=== PATIENT | female | born 1985 | race Two or more races ===

== ENCOUNTER 2019-04-19 22:30 | Inpatient (IN) | payer OTHER ==
[2019-04-19] MEDS ORDERED: PROMETHAZINE HCL 25 MG/1 ML VIAL IVPB ONE (23:30)
[2019-04-19] MEDS ORDERED: ELECTROLYTE-148 SOLN 1,000 ML IV SCH (23:30)
[2019-04-19] MEDS ORDERED: BUTORPHANOL TARTRATE 2 MG/ML VIAL IVPB ONE (23:30)
[2019-04-19] MEDS ORDERED: PROMETHAZINE HCL 25 MG/1 ML VIAL ONE (23:34)
[2019-04-19] MEDS ORDERED: BUTORPHANOL TARTRATE 2 MG/ML VIAL ONE (23:34)
[2019-04-19 23:57] VITALS: BMI 32.2
[2019-04-20 00:05] LABS: BASO % 0.3 % (0-2.0); EOS % 0.5 % (0-4.5); HEMATOCRIT 38.2 % (32.4-45.2); HEMOGLOBIN 12.9 GM/dL (10.7-15.3); MCH 27.8 pg (25.7-33.7); MCHC 33.6 g/dl (32.0-36.0); MEAN CELL VOLUME 82.7 fl (80-96); MEAN PLT VOLUME 7.9 fl (7.5-11.1); MONO % 7.2 % (3.8-10.2); PLATELET COUNT 232 K/MM3 (134-434); RBC 4.62 M/mm3 (3.60-5.2); RDW 15.3 % (11.6-15.6); WHITE BLOOD COUNT 10.5 K/mm3 (4.0-10.0)
[2019-04-20 00:31] LABS: BLOOD UREA NITROGEN 11.6 mg/dL (7-18); CALCIUM 8.7 mg/dL (8.5-10.1); CREATININE 0.7 mg/dL (0.55-1.3); POTASSIUM 3.8 mmol/L (3.5-5.1)
[2019-04-20 00:40] LABS: INR 0.87 (0.83-1.09); PROTHROMBIN TIME (PATIENT) 10.3 SEC (9.7-13.0)
[2019-04-20] MEDS ORDERED: FENTANYL/BUPIVACAINE/NS/PF - PCEA - 50 ML DISP.SYRIN EP ONE ×2 (04:54→08:33)
[2019-04-20] MEDS ORDERED: NALOXONE HCL 0.4 MG/ML VIAL IVPUSH PRN (05:00)
[2019-04-20] MEDS ORDERED: FENTANYL/BUPIVACAINE/NS/PF - PCEA - 50 ML DISP.SYRIN EP SCH (05:00)
[2019-04-20] MEDS ORDERED: LIDO 2%/EPI 1:200000 PRESRVFRE (20 ML SDVIAL) ONE (05:02)
[2019-04-20] MEDS ORDERED: BUPIVACAINE HCL/PF 0.25% (2.5MG/ML) 10 ML VIAL ONE ×2 (05:02→05:55)
[2019-04-20] MEDS ORDERED: OXYTOCIN 30 UNITS in 0.9% NS 30 UNIT/500 ML INFUS.BAG IVPB ONE (05:36)
[2019-04-20] MEDS ORDERED: OXYTOCIN 30 UNITS in 0.9% NS 30 UNIT/500 ML INFUS.BAG IVPB SCH (05:45)
--- NOTE | 2019-04-20 05:47 | HP ---
Past Medical History - Admission Chief Complaint: active labor History of Present Illness: none History Source: Patient Limitations to Obtaining History: No Limitations - Past Medical History MISSILE TECHNICIAN: No: Alzheimer's, CVA, Dementia, Migraine, Multiple Sclerosis, Peripheral Neuropathy, Parkinson's, Seizure, Syncope, TIA, Vertigo, Other Cardiovascular: No: AFIB, Aneurysm, Aortic Insufficiency, Aortic Stenosis, CAD, CHF, Deep Vein Thrombosis, HTN, Hyperlipdemia, SD, Mitral Insufficiency, Mitral Stenosis, Murmur, Pulmonary Hypertension, Other Pulmonary: No: Asthma, Bronchitis, Cancer, COPD, O2 Dependent, Pneumonia, Previously Intubated, Pulmonary Embolus, Pulmonary Fibrosis, Sleep Apnea, Other Gastrointestinal: No: Ascites, Cancer, Constipation, Crohn's Disease, Diverticulitis, Diverticulosis, Esophageal Varices, Gastritis, GERD, GI Bleed, Hemorrhoids, Hiatal Hernia, Inflamatory Bowel Disease, Irritable Bowel Disease, Pancreatitis, Peptic Ulcer Disease, Ulcerative Colitis, Other Hepatobiliary: No: Cirrhosis, Cholelithiasis, Cholecystitis, Choledocholithiasis , Hepatitis A, Hepatitis B, Hepatitis C, Other Renal/: No: Renal Failure, Renal Inusuff, BPH, Cancer, Hematuria, Hemodialysis , Neurogenic Bladder, Renal Calculi, UTI, Other Reproductive: No: Ectopic , Endometriosis, Fibroids, PID, Polycystic Ovary Syndrome, Postmenopausal, Other ...: 2 ...Para: 0 ...Term: 0 ...: 0 ...Spon : 1 ...Induced : 0 ...Multiple Gestation: 0 ...EDC by Uri: 04/16/19 Heme/Onc: No: Anemia, B12 Deficiency, Bleeding Disorder, Cancer, Current Chemotherapy, Current Radiation Therapy, Hemochromatosis, Hypercoaguable State, Myeloproliferative Synd, Sickle Cell Disease, Sickle Cell Trait, Thrombocytopenia, Other Infectious Disease: No: AIDS, C-Diff, Herpes Zoster, HIV, MRSA, STD's, Tuberculosis, VREF, Other Psych: No: Addictions, Anxiety, Bipolar, Depression, Panic, Psychosis, Schizophrenia, Other Musculoskeletal: No: Bursitis, Chronic low back pain, Hemiparesis, Hemiplegia, Osteoarthritis, Paraplegia, Other Rheumatology: No: Fibromyalgia, Gout, Lupus, Rheumatoid Arthritis, Sarcoidosis, Vasculitis, Other ENT: No: Allergic Rhinitis, Sinusitis, Other Endocrine: No: Deerfield's Disease, Jeremy's Disease, Diabetes Insipidus, Diabetes Mellitus, Hyperparathyroidism, Hyperthyroidism, Hypothyroidism, Osteopenia, SIADH, Other Dermatology: No: Basal Cell, Cellulitis, Eczema, Melanoma, Psoriasis, Squamous Cell, Other - Past Surgical History Past Surgical History: No: None, AAA Repair, AICD, Amputation, Appendectomy, Arthrosocopy, AV Fistula/Graft, Bariatric Surgery, Breast Biopsy, Bypass, CABG, Carotid Endarterectomy, Cataract Removal, Cholecystectomy, Colectomy, Colonoscopy, Colostomy, Craniotomy, , Cystectomy, Hernia Repair, Hysterectomy, Ileal Conduit, Ileosotomy, Joint Replacement, Kidney Transplant, Laminectomy, Liver Transplant, Mastectomy, Nephrectomy, Oopherectomy, Orchiectomy, Permanent Pacemaker, Prostatectomy, Splenectomy, Stent, Thoracotomy , TURP, Tonsillectomy, Tubal Ligation, Upper Endoscopy, Valve Replacement, Vasectomy, Vein Stripping/Ligation Hx Myomectomy: No Hx Transabdominal Cerclage: No - Advance Directives Advance Directives: Yes: Living Will - Smoking History Smoking history: Never smoked Have you smoked in the past 12 months: No - Alcohol/Substance Use Hx Alcohol Use: No History of Substance Use: reports: None - Social History Usual Living Arrangement: Yes: With Spouse ADL: Independent History of Recent Travel: No Home Medications - Allergies Allergies/Adverse Reactions: Allergies Allergy/AdvReac Type Severity Reaction Status Date / Time shrimp Allergy Unknown Verified 04/19/19 23:20 Family Disease History - Family Disease History Family History: Denies Review of Systems - Review of Systems Constitutional: reports: No Symptoms Eyes: reports: No Symptoms HENT: reports: No Symptoms Neck: reports: No Symptoms Cardiovascular: reports: No Symptoms Respiratory: reports: No Symptoms Gastrointestinal: reports: No Symptoms Genitourinary: reports: No Symptoms Breasts: reports: No Symptoms Reported Musculoskeletal: reports: No Symptoms Integumentary: reports: No Symptoms Neurological: reports: No Symptoms Endocrine: reports: No Symptoms Hematology/Lymphatic: reports: No Symptoms Psychiatric: reports: No Symptoms Physical Exam - Maternity Vital Signs: Vital Signs Temperature 98.4 F 04/20/19 04:00 Pulse Rate 86 04/20/19 05:00 Respiratory Rate 20 04/20/19 05:00 Blood Pressure 124/81 04/20/19 05:00 O2 Sat by Pulse Oximetry (%) Constitutional: Yes: Well Nourished, No Distress, Calm Eyes: Yes: WNL, Conjunctiva Clear, EOM Intact HENT: Yes: WNL, Atraumatic, Normocephalic Neck: Yes: WNL, Supple, Trachea Midline Cardiovascular: Yes: WNL, Regular Rate and Rhythm Lungs: Clear to auscultation Breast(s): Yes: WNL - Abdominal Exam/OB Number of Fetuses: Single Presentation: Vertex Contractions: Yes Regularity: Irregular Intensity: Mild/Mod Monitor Mode: External Heart Rate Location: [facility] Category: I Accelerations: Uniform Decelerations: None - Vaginal Exam/OB Vaginal Bleediing: Light, Bloody Show Speculum Exam: No Amniotic Membrane Status: Intact Presentation: Vertex/Position Station: -2 - Physical Exam Musculoskeletal: Yes: WNL Extremities: Yes: WNL Edema: Yes Edema: LUE: 1+, RUE: 1+, LLE: 1+, RLE: 1+ Integumentary: Yes: WNL Deep Tendon Reflex Grade: Normal +2 ...Motor Strength: WNL Psychiatric: Yes: WNL, Alert, Oriented - Labs Lab Results: CBC, BMP 04/19/19 23:30 04/19/19 23:30 Assessment/Plan for spontaneous laboring , pain medications
[2019-04-20] MEDS ORDERED: OXYTOCIN 20 UNITS in 0.9% NS 20 UNIT/1,000 ML INFUS.BAG IV ONE (06:52)
--- NOTE | 2019-04-20 09:10 | PN ---
Progress Note (short form) - Note Progress Note: 530 am 6cm, -1, 80%, epidural in, but not working well, continue laboring
--- NOTE | 2019-04-20 09:18 | PN ---
Progress Note (short form) - Note Progress Note: 745 am , 9 cm , -1, 100%, pushing soon
[2019-04-20] MEDS ORDERED: IBUPROFEN 600 MG TABLET (FP) PO ONE (10:45)
[2019-04-20] MEDS ORDERED: WITCH HAZEL 50% (TUCKS) 40 PAD/JAR PAD TP PRN (11:02)
[2019-04-20] MEDS ORDERED: BENZOCAINE 28 GM HEMORRHOIDAL OINTMENT TP PRN (11:02)
[2019-04-20] MEDS ORDERED: BISACODYL 10 MG SUPP.RECT RC PRN (11:02)
[2019-04-20] MEDS ORDERED: oxyCODONE HCL 5 MG TABLET PO PRN (11:02)
[2019-04-20] MEDS ORDERED: METHYLERGONOVINE MALEATE 0.2 MG/1 ML AMP IM PRN (11:02)
[2019-04-20] MEDS ORDERED: BENZOCAINE 20% 57 GM BOTTLE TP PRN (11:02)
[2019-04-20] MEDS ORDERED: IBUPROFEN 600 MG TABLET (FP) PO PRN (11:02)
[2019-04-20] MEDS ORDERED: ACETAMINOPHEN 325 MG TABLET (FP) PO PRN (11:02)
--- NOTE | 2019-04-20 11:10 | PN ---
Delivery - Delivery Type of Anesthesia: Local, Epidural Episiotomy/Laceration: Right Mediolateral EBL (cc): 300 Delivery, Single - Stages of Labor Date 1st Stage Initiatied: 04/19/19 Time 1st Stage Initiated: 21:00 Date 2nd Stage Initiated: 04/20/19 Time 2nd Stage Initiated: 09:30 Date of Delivery: 04/20/19 Time of Delivery: 10:20 Date Placenta Delivered: 04/20/19 Time Placenta Delivered: 10:40 Placenta: Yes: Spontaneous - Condition of Scouring Pads Supervisor/Saw Superintendent Present: Yes Gender: Male Weight: 3.062 kg Position: Right, OA Total Hours ROM (Hrs/Mins): 7 hrs - 1 Minute Total Score: 9 5 Minutes Total Score: 9 - [place] Feeding Plan Initial Plan: Elected not to breastfeed exclusively throughout hospitalization Benefits of Exclusively reinforced: Yes
[2019-04-20] MEDS ORDERED: OXYTOCIN 20 UNITS in 0.9% NS 20 UNIT/1,000 ML INFUS.BAG IV SCH (11:15)
[2019-04-21 08:21] LABS: BASO % 0.2 % (0-2.0); EOS % 0.6 % (0-4.5); HEMATOCRIT 31.8 % (32.4-45.2); HEMOGLOBIN 10.4 GM/dL (10.7-15.3); LYMPH % 13.9 % (8-40); MCH 27.5 pg (25.7-33.7); MCHC 32.9 g/dl (32.0-36.0); MEAN CELL VOLUME 83.7 fl (80-96); MEAN PLT VOLUME 8.1 fl (7.5-11.1); NEUT % 80.3 % (42.8-82.8); PLATELET COUNT 195 K/MM3 (134-434); RDW 15.9 % (11.6-15.6); WHITE BLOOD COUNT 16.5 K/mm3 (4.0-10.0)
--- NOTE | 2019-04-21 17:03 | PN ---
Post Progress Note Post Day: 1 Type of Delivery: Vital Signs: Vital Signs Temperature 98.5 F 04/21/19 10:00 Pulse Rate 77 04/21/19 10:00 Respiratory Rate 20 04/21/19 10:00 Blood Pressure 94/56 L 04/21/19 10:00 O2 Sat by Pulse Oximetry (%) 98 04/20/19 09:30 Breast Exam: Yes: Soft Uterus: Yes: Fundus Firm, Fundus below umbilicus Abdomen/GI: Yes: Abdomen soft, Passing flatus, Tolerating PO Lochia: Yes: Serosa Lochia, amount: Small Extremities: Yes: Calves non-tender Perineum: Yes: Episiotomy Activity: Ambulating - Labs Labs: CBC WBC 16.5 K/mm3 (4.0-10.0) H 04/21/19 07:39 RBC 3.80 M/mm3 (3.60-5.2) 04/21/19 07:39 Hgb 10.4 GM/dL (10.7-15.3) L 04/21/19 07:39 Hct 31.8 % (32.4-45.2) L D 04/21/19 07:39 MCV 83.7 fl (80-96) 04/21/19 07:39 MCH 27.5 pg (25.7-33.7) 04/21/19 07:39 MCHC 32.9 g/dl (32.0-36.0) 04/21/19 07:39 RDW 15.9 % (11.6-15.6) H 04/21/19 07:39 Plt Count 195 K/MM3 (134-434) 04/21/19 07:39 MPV 8.1 fl (7.5-11.1) 04/21/19 07:39 Absolute Neuts (auto) 13.3 K/mm3 (1.5-8.0) H 04/21/19 07:39 Neutrophils % 80.3 % (42.8-82.8) 04/21/19 07:39 Lymphocytes % 13.9 % (8-40) 04/21/19 07:39 Monocytes % 5.0 % (3.8-10.2) 04/21/19 07:39 Eosinophils % 0.6 % (0-4.5) 04/21/19 07:39 Basophils % 0.2 % (0-2.0) 04/21/19 07:39 Nucleated RBC % 0 % (0-0) 04/21/19 07:39 Assessment/Plan dc pt home donna
--- NOTE | 2019-04-21 17:05 | DS ---
Physical Exam-WEB DEVELOPER PROGRAMMER Vital Signs: Vital Signs Temperature 98.5 F 04/21/19 10:00 Pulse Rate 77 04/21/19 10:00 Respiratory Rate 20 04/21/19 10:00 Blood Pressure 94/56 L 04/21/19 10:00 O2 Sat by Pulse Oximetry (%) 98 04/20/19 09:30 Constitutional: Yes: Well Nourished, No Distress, Calm Eyes: Yes: WNL, Conjunctiva Clear, EOM Intact HENT: Yes: WNL, Atraumatic, Normocephalic Neck: Yes: WNL, Supple, Trachea Midline Cardiovascular: Yes: WNL, Regular Rate and Rhythm Respiratory: Yes: WNL, Regular, CTA Bilaterally Gastrointestinal: Yes: WNL, Normal Bowel Sounds, Soft ...Rectal Exam: Yes: WNL Renal/: Yes: WNL Pelvis: Yes: WNL External Genitalia: Yes: Normal Internal Exam Deferred: No Vaginal Exam: Yes: Normal Cervix: Yes: Normal Uterus: Yes: Normal Adnexa: Normal: Bilateral ....Post : Yes: Uterus firm, Uterus non-tender Breast(s): Yes: WNL Musculoskeletal: Yes: WNL Extremities: Yes: WNL Edema: Yes Edema: LUE: 1+, RUE: 1+, LLE: 1+, RLE: 1+ Integumentary: Yes: WNL Wound/Incision: Yes: Clean/Dry, Well Approximated Neurological: Yes: WNL, Alert, Oriented ...Motor Strength: WNL Psychiatric: Yes: WNL, Alert, Oriented Labs: CBC, BMP 04/21/19 07:39 04/19/19 23:30 Delivery - Delivery Type of Anesthesia: Local, Epidural Episiotomy/Laceration: Right Mediolateral EBL (cc): 300 Delivery, Single - Stages of Labor Date 1st Stage Initiatied: 04/19/19 Time 1st Stage Initiated: 21:00 Date 2nd Stage Initiated: 04/20/19 Time 2nd Stage Initiated: 09:30 Date of Delivery: 04/20/19 Time of Delivery: 10:20 Time Placenta Delivered: 10:40 Placenta: Yes: Spontaneous - Condition of Infant Air Traffic Coordinator/Gasket Maker Present: Yes Name: Hollie Napoles Infant Gender: Male Weight: 3.062 kg Position: Right, OA Total Hours ROM (Hrs/Mins): 7 hrs - 1 Minute Total Score: 9 5 Minutes Total Score: 9 - [place] Feeding Plan Initial Plan: Elected not to breastfeed exclusively throughout hospitalization Benefits of Exclusively reinforced: Yes Discharge Summary Reason For Visit: LABOR ADMIT Condition: Stable - Instructions Diet, Activity, Other Instructions: regular Disposition: HOME - Home Medications Comprehensive Discharge Medication List: Ambulatory Orders Vitamins ([facility]) - 1 tab PO DAILY 04/20/19
[2019-04-21] MEDS ORDERED: SENNOSIDES/DOCUSATE COMBO (SENNA PLUS) TABLET (UD) PO PRN (22:00)
[2019-04-22 11:56] VITALS: BP 115/68; PULSE 88; TEMP 98
== END 2019-04-22 13:45 | disposition home or self-care (01) | DRG 807 ==
LOC: JDEL 22:30 → JLDR 22:53 → J3W 04-20 12:54
PROVIDERS: ADMIT Obstetrics & Gynecology; ATTEND Obstetrics & Gynecology
PROC: 10D07Z6 Extraction of Products of Conception, Vacuum, Via Natural or Artificial Opening (ICD-10-PCS; principal; 2019-04-20)
PROC: 0W8NXZZ Division of Female Perineum, External Approach (ICD-10-PCS; 2019-04-20)
PROC: 3E0R3BZ Introduction of Anesthetic Agent into Spinal Canal, Percutaneous Approach (ICD-10-PCS; 2019-04-20)
DX: O75.81 Maternal exhaustion complicating labor and delivery (principal); Z37.0 Single live birth; Z3A.39 39 weeks gestation of pregnancy
CPT/HCPCS: 36415; 59409; 80048; 85025; 85610; 85730; 86593; 86850; 86900; 86901; 87389

== ENCOUNTER 2020-11-27 04:45 | Inpatient (IN) | payer OTHER ==
[2020-11-27] MEDS ORDERED: ELECTROLYTE-148 SOLN 1,000 ML IV SCH (05:15)
[2020-11-27] MEDS ORDERED: OXYTOCIN 30 UNITS in 0.9% NS 30 UNIT/500 ML INFUS.BAG IVPB SCH (05:15)
[2020-11-27 05:36] VITALS: BMI 31.9
[2020-11-27 05:37] LABS: BASO % 0.5 % (0-2.0); EOS % 0.5 % (0-4.5); HEMATOCRIT 39.7 % (32.4-45.2); HEMOGLOBIN 13.3 GM/dL (10.7-15.3); LYMPH % 14.4 % (8-40); MCH 27.3 pg (25.7-33.7); MCHC 33.5 g/dl (32.0-36.0); MEAN CELL VOLUME 81.4 fl (80-96); MONO % 7.3 % (3.8-10.2); NEUT % 77.3 % (42.8-82.8); PLATELET COUNT 285 K/MM3 (134-434); RBC 4.87 M/mm3 (3.60-5.2); RDW 14.1 % (11.6-15.6); WHITE BLOOD COUNT 12.5 K/mm3 (4.0-10.0)
[2020-11-27 05:44] LABS: INR 0.89 (0.83-1.09); PROTHROMBIN TIME (PATIENT) 10.8 SEC (9.7-13.0)
[2020-11-27 05:57] LABS: POTASSIUM 3.9 mmol/L (3.5-5.1)
[2020-11-27 05:58] LABS: CALCIUM 9.1 mg/dL (8.5-10.1)
[2020-11-27 05:59] LABS: BLOOD UREA NITROGEN 10.8 mg/dL (7-18)
[2020-11-27 06:02] LABS: CREATININE 0.7 mg/dL (0.55-1.3)
[2020-11-27 06:20] LABS: ACTIVATED PTT 28.2 SECONDS (25.2-36.5)
[2020-11-27] MEDS ORDERED: OXYTOCIN 20 UNITS in 0.9% NS 20 UNIT/1,000 ML INFUS.BAG IV ONE ×3 (06:22→14:10)
[2020-11-27] MEDS ORDERED: LIDOCAINE HCL 1% PRESERVATIVE FREE - 30ML VIAL ONE (06:30)
[2020-11-27 06:55] LABS: HIV INTERPRETATION NEGATIVE (NEGATIVE)
[2020-11-27] MEDS ORDERED: METHYLERGONOVINE MALEATE 0.2 MG/1 ML AMP IM PRN (07:01)
[2020-11-27] MEDS ORDERED: BENZOCAINE 20% 57 GM BOTTLE TP PRN (07:01)
[2020-11-27] MEDS ORDERED: oxyCODONE HCL 5 MG TABLET PO PRN (07:01)
[2020-11-27] MEDS ORDERED: WITCH HAZEL 50% (TUCKS) 40 PAD/JAR PAD TP PRN (07:01)
[2020-11-27] MEDS ORDERED: BISACODYL 10 MG SUPP.RECT RC PRN (07:01)
[2020-11-27] MEDS ORDERED: BENZOCAINE 28 GM HEMORRHOIDAL OINTMENT TP PRN (07:01)
[2020-11-27] MEDS: OXYTOCIN 20 UNITS in 0.9% NS 20 UNIT/1,000 ML INFUS.BAG IV SCH ×2 (07:30→14:20)
[2020-11-27] MEDS: IBUPROFEN 600 MG TABLET (FP) PO PRN ×2 (09:00→20:05)
[2020-11-27] MEDS: ACETAMINOPHEN 325 MG TABLET (FP) PO PRN ×2 (09:00→20:06)
[2020-11-27] MEDS: PRENATAL VITAMINS W/ FOLIC ACID TABLET (FP) PO SCH (10:00)
[2020-11-28] MEDS: PRENATAL VITAMINS W/ FOLIC ACID TABLET (FP) PO SCH (09:50)
[2020-11-28] MEDS: ACETAMINOPHEN 325 MG TABLET (FP) PO PRN (13:51)
[2020-11-28] MEDS: IBUPROFEN 600 MG TABLET (FP) PO PRN (13:51)
[2020-11-28 15:57] LABS: BASO % 0.6 % (0-2.0); EOS % 1.5 % (0-4.5); HEMATOCRIT 33.4 % (32.4-45.2); LYMPH % 17.1 % (8-40); MCH 27.1 pg (25.7-33.7); MEAN CELL VOLUME 82.1 fl (80-96); MONO % 5.7 % (3.8-10.2); NEUT % 75.1 % (42.8-82.8); PLATELET COUNT 237 K/MM3 (134-434); RBC 4.07 M/mm3 (3.60-5.2); RDW 14.7 % (11.6-15.6); WHITE BLOOD COUNT 11.7 K/mm3 (4.0-10.0)
[2020-11-28] MEDS ORDERED: SENNOSIDES/DOCUSATE COMBO (SENNA PLUS) TABLET (UD) PO PRN (22:00)
[2020-11-29] MEDS: IBUPROFEN 600 MG TABLET (FP) PO PRN (10:18)
[2020-11-29] MEDS: ACETAMINOPHEN 325 MG TABLET (FP) PO PRN (10:19)
[2020-11-29] MEDS: PRENATAL VITAMINS W/ FOLIC ACID TABLET (FP) PO SCH (10:19)
[2020-11-29 11:02] VITALS: BP 103/64; PULSE 88; TEMP 98
== END 2020-11-29 13:20 | disposition home or self-care (01) | DRG 807 ==
LOC: JLDR 04:45 → J3W 14:30
PROVIDERS: ADMIT Obstetrics & Gynecology; ATTEND Obstetrics & Gynecology
PROC: 10E0XZZ Delivery of Products of Conception, External Approach (ICD-10-PCS; principal; 2020-11-27)
PROC: 0W8NXZZ Division of Female Perineum, External Approach (ICD-10-PCS; 2020-11-27)
DX: O80 Encounter for full-term uncomplicated delivery (principal); Z37.0 Single live birth; Z3A.39 39 weeks gestation of pregnancy
CPT/HCPCS: 36415; 59409; 80048; 85025; 85610; 85730; 86780; 86850; 86900; 86901; 87389; C9803; U0003